=== PATIENT | male | born 1975 | race Caucasian/White ===

== ENCOUNTER → 2022-12-20 10:31 | Outpatient (CLI) | payer OTHER, SELFPAY ==
--- NOTE | 2022-12-20 | DI.RAD.S_ITS ---
PROCEDURE: XR LUMBAR SPINE 2-3V INDICATIONS: low back pain TECHNIQUE: 3 views of the lumbar spine were acquired. COMPARISON: None. FINDINGS: Bones: 5 [id number] vertebrae are present. There is normal bony alignment. No vertebral body compression fractures. No suspicious bony lesions. Mild disc height loss at all levels. Soft tissues: Overlying bowel gas pattern is normal. No suspicious soft tissue calcifications. IMPRESSION: Mild disc height loss at all levels. Dictated by: Roni Taylor M.D. on 12/20/2022 at 11:39 Approved by: Roni Taylor M.D. on 12/20/2022 at 11:39
== END ==
LOC: RAD 10:36
PROVIDERS: Referring Provider Internal Medicine Cardiovascular Disease; Visit Provider Internal Medicine Cardiovascular Disease
DX: M54.50 Low back pain, unspecified (principal)
CPT/HCPCS: 72100